=== PATIENT | female | born 1945 | race Caucasian/White ===

== ENCOUNTER 2017-09-23 13:14 | Emergency (ER) | payer OTHER ==
[2017-09-23 13:39] VITALS: TEMP 97.2
[2017-09-23 14:03] LABS: BASOPHILS % (AUTO) 2 % (0-3); EOSINOPHILS % (AUTO) 2 % (0-9); HEMATOCRIT 36 % (35-47); MEAN CORPUSCULAR HGB CONC 35.7 gm/dl (32.0-36.0); MEAN CORPUSCULAR VOLUME 87 fL (81-99); NEUTROPHILS % (AUTO) 55.1 % (37-80)
[2017-09-23 14:04] LABS: CALCIUM 8.9 mg/dl (8.5-10.1); POTASSIUM 4.1 mMol/L (3.5-5.1)
[2017-09-23 15:01] VITALS: RESP 18
[2017-09-23 15:02] VITALS: BP 107/70; PULSE 96; O2SAT 93
== END 2017-09-23 14:55 | disposition home or self-care (01) | DRG 312 ==
LOC: ED 13:14
DX: R55 Syncope and collapse (principal); M54.6 Pain in thoracic spine
CPT/HCPCS: 72070; 80048; 85025; 93005; 99283; 99284

== ENCOUNTER → 2018-09-14 | Day surgery (SDC) | payer MEDICARE, OTHER ==
[~2018-09-14] MED LIST: CLINDAMYCIN 150 MG/ML SOL ONE; FENTANYL 100MCG/2ML SOL ONE; MIDAZOLAM 2 MG/2 ML SOL ONE; PROPOFOL 500 MG/50 ML EMU IV ONE
[2018-09-14] MEDS: LIDOCAINE HCL 1% MPF 30 SOL ONE ×2 (10:35→12:33)
[2018-09-14] MEDS: BUPIVACAINE HCL 0.5% MPF 10 ML SOL ONE ×2 (10:35→12:33)
[2018-09-14 13:22] VITALS: RESP 12
[2018-09-14 13:47] VITALS: BP 137/94; PULSE 72; TEMP 98; O2SAT 96
== END | disposition home or self-care (01) | DRG 566 ==
LOC: SURG 08:09
PROVIDERS: ATTEND Podiatrist
DX: M20.32 Hallux varus (acquired), left foot (principal)
CPT/HCPCS: 73620; 73630; 99070; J2250; J3010; J3490; L3260; A6402; J2001; J2704

== ENCOUNTER 2018-09-17 17:33 | Emergency (ER) | payer MEDICARE, OTHER ==
[2018-09-17 17:38] VITALS: RESP 18; TEMP 97.6
[2018-09-17 18:00] LABS: HEMATOCRIT 43 % (35-47); HEMOGLOBIN 13.6 gm/dl (12.0-15.5); MEAN CORPUSCULAR HEMOGLOBIN 29.2 pg (27.0-32.0); MEAN CORPUSCULAR VOLUME 91 fL (81-99)
[2018-09-17 18:11] LABS: APPEARANCE,URINE Clear; BILIRUBIN,URINE 2+ (NEGATIVE); COLOR,URINE Dark yellow; GLUCOSE, URINE (UA) NEGATIVE (NEGATIVE); KETONES,URINE 2+ (NEGATIVE); LEUKOCYTE ESTERASE ,URINE NEGATIVE (NEGATIVE); NITRATE,URINE NEGATIVE (NEGATIVE); OCCULT BLOOD,URINE TRACE LYSED (NEG-TRACE); UROBILINOGEN,URINE 0.2 (0.2-1.0 EU)
[2018-09-17 18:11] LABS: CALCIUM 9.4 mg/dl (8.5-10.1); CARBON DIOXIDE 25.1 mEq/L (21-32); CREATININE 0.98 mg/dl (0.60-1.00); POTASSIUM 4.3 mMol/L (3.5-5.1)
[2018-09-17 18:23] LABS: BACTERIA 2+ (< 1+); CRYSTALS NEGATIVE (0-3 AVE/HPF); EPITHELIAL CELLS NEGATIVE (SQUAMOUS); ICTOTEST,URINE NEGATIVE (NEGATIVE); RBC,URINE 0-5 (0-3AV/HPF)
[2018-09-17 18:49] LABS: BAND NEUTROPHILS % (MANUAL) 0 %; BASOPHILS % (MANUAL) 0 % (0-3); EOSINOPHILS % (MANUAL) 1 % (0-9); LYMPHOCYTES % (MANUAL) 17 % (10-50); MONOCYTES % (MANUAL) 4 % (0-12); NEUTROPHILS % (MANUAL) 78 % (37-80); NORMAL RBCS PRESENT
[2018-09-17] MEDS ORDERED: SODIUM CHLORIDE 0.9% 1000 ML SOL IV SCH (19:00)
[2018-09-17] MEDS ORDERED: CEPHALEXIN 250 MG/5 ML BOTTLE PO ONE (20:37)
[2018-09-17] MEDS ORDERED: CEPHALEXIN 250 MG/5 ML BOTTLE ONE (20:41)
[2018-09-17 22:31] VITALS: BP 121/82; PULSE 90; O2SAT 95
== END 2018-09-17 21:15 | disposition home or self-care (01) | DRG 558 ==
LOC: ED 17:33
DX: M62.82 Rhabdomyolysis (principal); E86.0 Dehydration; R39.9 Unspecified symptoms and signs involving the genitourinary system
CPT/HCPCS: 80048; 81001; 82550; 85007; 85027; 87088; 96365; 99283; 99284; A9270-GY

== ENCOUNTER 2019-01-25 09:48 | Emergency (ER) | payer MEDICARE, OTHER ==
[2019-01-25 10:13] VITALS: TEMP 97.5
[2019-01-25 10:37] LABS: BASOPHILS % (AUTO) 1 % (0-3); EOSINOPHILS % (AUTO) 3 % (0-9); HEMATOCRIT 38 % (35-47); HEMOGLOBIN 12.1 gm/dl (12.0-15.5); LYMPHOCYTES % (AUTO) 29.1 % (10-50); MEAN CORPUSCULAR HEMOGLOBIN 29.2 pg (27.0-32.0); MEAN CORPUSCULAR HGB CONC 32.1 gm/dl (32.0-36.0); MEAN CORPUSCULAR VOLUME 91 fL (81-99); MONOCYTES % (AUTO) 9.6 % (0-12); NEUTROPHILS % (AUTO) 57.9 % (37-80)
[2019-01-25 10:45] LABS: CALCIUM 8.4 mg/dl (8.5-10.1); CARBON DIOXIDE 27.8 mEq/L (21-32); CREATININE 1.05 mg/dl (0.60-1.00); POTASSIUM 3.8 mMol/L (3.5-5.1)
[2019-01-25 16:53] VITALS: O2SAT 92
[2019-01-25 16:54] VITALS: BP 152/88; PULSE 78; RESP 18
== END 2019-01-25 13:30 | disposition home or self-care (01) | DRG 948 ==
LOC: ED 09:48
DX: R53.1 Weakness (principal)
CPT/HCPCS: 36415; 80048; 82550; 85025; 93005; 99283; 99284